=== PATIENT | male | born 1960 | race Caucasian/White ===

== ENCOUNTER → 2020-12-04 | Outpatient (CLI) | payer BC ==
[~2020-12-04] MED LIST: NAPR220C4 PO
[2020-12-04] MEDS: GADOTERATE 7.5 MMOL/15ML VIAL. IVP ONE (11:07)
--- NOTE | 2020-12-04 17:11 | KCIC ---
EXAMINATION: MRI RIGHT SCAPULA WITH AND WITHOUT IV CONTRAST CLINICAL HISTORY: Right shoulder periscapular mass for over one yr, growing in size TECHNIQUE: Multiplanar multisequential images obtained through the scapula with and without intraveno us contrast. COMPARISON: None FINDINGS: 10.5 x 3.8 x 7.8 cm mass in the infraspinatus muscle demonstrating homogeneous fat signal with associ ated no contrast enhancement, compatible with an intramuscular lipoma. No evidence of abnormal soft t issue enhancement. No organized soft tissue collection. No evidence of acute fracture or suspicious marrow replacing process. IMPRESSION: 10.5 cm mass in the infraspinatus muscle, compatible with an intramuscular lipoma. Electronically signed by: Jean Doty DO (12/04/2020 5:08 PM) [id number]
== END ==
LOC: KCIC MRI 10:04
PROVIDERS: ATTEND Orthopaedic Surgery
DX: M25.811 Other specified joint disorders, right shoulder (principal)
CPT/HCPCS: 73223; A9575